=== PATIENT | male | born 1945 | race Caucasian/White ===

== ENCOUNTER 2018-08-04 05:46 | Inpatient (IN) | payer OTHER ==
[2018-08-04] MEDS ORDERED: LR 1,000 ML IV ONE (05:58)
[2018-08-04] MEDS ORDERED: cefOXitin SODIUM 2 GM in NS 100 ML IV ONE (07:00)
[2018-08-04] MEDS ORDERED: DEXAMETHASONE 4 MG/ML VIAL IVP ONE (07:00)
[2018-08-04] MEDS ORDERED: MIDAZOLAM 2 MG/2 ML VIAL IVP ONE (07:10)
[2018-08-04] MEDS ORDERED: POLYMYXIN B SULFATE 500,000 UNIT/10 ML SYR IRR ONE ×2 (07:10→07:59)
[2018-08-04] MEDS ORDERED: BUPIVACAINE 0.25% 30 ML SDV ONE ×2 (07:10→08:28)
[2018-08-04] MEDS ORDERED: MIDAZOLAM 2 MG/2 ML VIAL ONE (07:10)
[2018-08-04] MEDS ORDERED: BACITRACIN 50,000 UNITS/10 ML SYR IRR ONE (07:11)
--- NOTE | 2018-08-04 07:13 | PDANEPAE ---
ANE Past Medical History - Cardiovascular History Hx Hypertension: No Hx Arrhythmias: No Hx Chest Pain: No Hx Coronary Artery / Peripheral Vascular Disease: No Hx CHF / Valvular Disease: No Hx Palpitations: No Cardiovascular History Comment: SINUS BRADYCARDIA HAD PACEMAKER PLACED 02/2018 [place] - Pulmonary History Hx COPD: No Hx Asthma/Reactive Airway Disease: No Hx Recent Upper Respiratory Infection: No Hx Oxygen in Use at Home: No Hx Sleep Apnea: No Sleep Apnea Screening Result - Last Documented: Positive - Neurologic History Hx Cerebrovascular Accident: Yes Hx Seizures: No Hx Dementia: No Neurologic History Comment: LT SIDED - Endocrine History Hx Diabetes: Yes Endocrine History Comment: NIDDM - Renal History Hx Renal Disorders: No - Liver History Hx Hepatic Disorders: No - Neurological & Psychiatric Hx Hx Neurological and Psychiatric Disorders: No - Cancer History Hx Cancer: Yes Cancer History Comment: NEW DC COLON CA - Congenital Disorder History Hx Congenital Disorders: No - GI History Hx Gastrointestinal Disorders: Yes Gastrointestinal History Comment: COLONOSCOPY. HX OF POLYPS. CONSTIPATED - Other Health History Other Health History: HX PREV LT DVT HAD SCREEN PLACED IN [facility] SINCE REMOVED. MISSING TEETH - Chronic Pain History Chronic Pain: No - Surgical History Prior Surgeries: NEVER ANE Review of Systems Review of Systems: - Exercise capacity METS (RN): 3 METS - Pacemaker Pacemaker [employer] Insurance Agent: [employer] Date Pacemaker Last Checked: 06/2018 ANE Patient History - Allergies Allergies/Adverse Reactions: No Known Allergies Allergy (Unverified 07/24/18 14:46) - Home Medications Home medications: home medication list seen and reviewed Home Medications: Aspirin [Aspirin 81mg (*)] 81 mg PO DAILY 07/24/18 [Last Taken 08/01/18] FLUoxetine [Prozac 20 MG (*)] 20 mg PO DAILY 07/24/18 [Last Taken 08/04/18] Multivitamins [Multivitamin (*)] 1 each PO DAILY 07/24/18 [Last Taken 08/03/18] Pravastatin Sodium 20 mg PO HS 07/24/18 [Last Taken 08/03/18] Ranitidine HCl [Zantac] 300 mg PO DAILY 07/24/18 [Last Taken 08/02/18] Triamterene/Hctz 75/50 [Maxzide 75-50 mg Tab (*)] 1 tab PO DAILY 07/24/18 [Last Taken 08/04/18] metFORMIN HCL [Glucophage 500 mg (*)] 1,000 mg PO BIDMEAL 07/24/18 [Last Taken 08/02/18] - NPO status NPO Status: no food or drink >8 hours NPO Since - Liquids (Date): 08/04/18 NPO Since - Liquids (Time): 04:00 NPO Since - Solids (Date): 08/02/18 NPO Since - Solids (Time): 18:00 - Anes Hx Anes Hx: no prior problems - Smoking Hx Smoking Status: Never smoked Marijuana use: No - Alcohol Use Alcohol Use: None - Family Anes Hx Family Hx Anesthesia Complications: NEG ANE Labs/Vital Signs - Vital Signs Blood Pressure: 143/83 Heart Rate: 85 Respiratory Rate: 16 O2 Sat (%): 96 Height: 175.26 cm Weight: 113.852 kg ANE Physical Exam - Airway Neck exam: FROM Mallampati Score: Class 3 Mouth exam: poor dentition - Pulmonary Pulmonary: no respiratory distress, no rales or rhonchi, clear to auscultation, reduced air movement - Cardiovascular Cardiovascular: regular rate and rhythym, no murmur, rub, or gallop - ASA Status ASA Status: III ANE Anesthesia Plan Anesthesia Plan: general endotracheal anesthesia
--- NOTE | 2018-08-04 07:16 | PDHPUP ---
History & Physical Update H&P update statement: This history and physical update is based on an assessment of the patient which was completed after admission or registration (within 24 hours), but prior to the surgery/procedure. H&P update: H&P reviewed & patient examined, changes noted (blood glucose 143 this morning/pt reports no problems with bowel prep)
[2018-08-04] MEDS ORDERED: PROPOFOL 200 MG/20 ML VIAL ONE (07:22)
[2018-08-04] MEDS ORDERED: ONDANSETRON 4 MG/2 ML VIAL ONE (07:23)
[2018-08-04] MEDS ORDERED: ROCURONIUM 100 MG/10 ML VIAL ONE (07:23)
[2018-08-04] MEDS ORDERED: LIDOCAINE 2% 2 ML INJ ONE (07:23)
[2018-08-04] MEDS ORDERED: PHENYLEPHRINE HCL 100 MCG/ML SYR ONE (07:37)
[2018-08-04] MEDS ORDERED: DEXMEDETOMIDINE HCL 400 MCG in NS 100 ML IV SCH (08:00)
[2018-08-04] MEDS ORDERED: DEXMEDETOMIDINE HCL 200 MCG in NS 50 ML IV ONE (08:00)
[2018-08-04] MEDS ORDERED: ROCURONIUM 50 MG/5 ML VIAL ONE (09:24)
[2018-08-04] MEDS ORDERED: LABETALOL HCL 5 MG/ML 20 ML MDV IVP PRN (10:02)
[2018-08-04] MEDS ORDERED: fentaNYL 100 MCG/2 ML INJ IVP PRN (10:02)
[2018-08-04] MEDS ORDERED: ENALAPRILAT DIHYDRATE 1.25 MG/ML VIAL IVP PRN (10:02)
[2018-08-04] MEDS ORDERED: DEXAMETHASONE 4 MG/ML VIAL IVP PRN (10:02)
[2018-08-04] MEDS ORDERED: ONDANSETRON 4 MG/2 ML VIAL IVP PRN ×2 (10:02→11:06)
[2018-08-04] MEDS ORDERED: PROMETHAZINE HCL 25 MG/ML INJ IVP PRN (10:02)
[2018-08-04] MEDS ORDERED: NALOXONE HCL 0.4 MG/ML INJ IVP PRN (10:02)
[2018-08-04] MEDS ORDERED: LR 500 ML IV PRN (10:02)
[2018-08-04] MEDS ORDERED: GLYCOPYRROLATE 0.2 MG/1 ML VIAL ONE ×2 (10:16)
[2018-08-04] MEDS ORDERED: NEOSTIGMINE METHYLSULFATE 5 MG/5 ML SYR ONE (10:16)
--- NOTE | 2018-08-04 11:08 | POSTANESTH ---
Post Anesthetic Evaluation Cardiovascular Status: Normal, Stable, Similar to Pre-Op Cond Respiratory Status: Normal, Stable, Similar to Pre-op Cond. Level of Consciousness/Mental Status: Can Participate in Eval, Mildly Sleepy, Arousable Pain Control: Adequate, Prn Tx Ordered Nausea/Vomiting Control: Adequate, Prn Tx Ordered Complications Possibly Related to Anesthesia: None Noted
[2018-08-04] MEDS ORDERED: D50W 25 GM/50 ML SYR IVP PRN (11:13)
--- NOTE | 2018-08-04 11:16 | POSTOPPROG ---
Post Op Note Date of Operation: 08/04/18 Surgeon: Chico Saenz (, FACS) Tank Shop Supervisor: Cordelia Martin RN-FA Anesthesiologist: Douglas Meehan MD Anesthesia: GET(General Endotracheal) Pre-op Diagnosis: adenocarcinoma ascending colon Procedure: lap right colectomy Inf/Abcess present in the surg proc area at time of surgery?: No
[2018-08-04] MEDS: LR 1,000 ML IV SCH (11:48)
--- NOTE | 2018-08-04 12:39 | PDMN ---
Medical Necessity Medical necessity: [facility] IP only surgery; cpt 19829 Colectomy
[2018-08-04] MEDS: cefOXitin SODIUM 2 GM in NS 100 ML IV SCH ×3 (13:42→23:58)
[2018-08-04] MEDS: HEPARIN 5,000 UNIT/0.5 ML INJ SC SCH ×2 (13:43→21:39)
[2018-08-04] MEDS: ASPIRIN 81 MG CHEWABLE TAB PO SCH (13:43)
[2018-08-04] MEDS: METOCLOPRAMIDE 10 MG/2 ML VIAL IVP SCH ×3 (13:43→23:57)
--- NOTE | 2018-08-04 14:25 | GOP ---
DATE OF OPERATION: 08/04/2018 SURGEON: Chico Saenz MD, FACS [employer]: ZEHRA Goff. ANESTHESIA: General endotracheal. ANESTHESIOLOGIST: Chico Meehan MD. PREOPERATIVE DIAGNOSIS: 1. Adenocarcinoma of the ascending colon status post polypectomy. 2. Morbid obesity. POSTOPERATIVE DIAGNOSIS: PROCEDURE PERFORMED: Laparoscopic assisted right colectomy. FINDINGS: Extensive terminal ileal polyps without suspicious areas noted. Gross inspection of the colon revealing additional hyperplastic polyps without identification of the prior polypectomy site. ESTIMATED BLOOD LOSS: 50 mL. DESCRIPTION OF PROCEDURE: After informed consent was obtained, the patient was brought to the operating room and placed under general anesthesia. He had undergone mechanical and antibiotic bowel preparation preoperatively and received 2 g of cefoxitin perioperatively. SCD stockings were placed. A English catheter was placed. The abdomen was prepped and draped in the usual fashion. Before proceeding, a time-out and identification of the patient was performed. 0.25% Marcaine was used to infiltrate all incision sites. An infraumbilical incision was made and carried through skin and subcutaneous tissues. Blunt dissection was carried out down to the abdominal wall. Penetrating towel clamp was used to place ventral traction on the umbilicus, and a Veress needle was introduced into the peritoneal cavity. Position was confirmed by saline infusion and a pneumoperitoneum established with CO2 gas to a pressure of 15 mmHg. The Veress needle was withdrawn and replaced with a 12 mm bladeless trocar. A 30 degree 5 mm scope was introduced, and the peritoneal cavity was visualized. Additional 5 mm ports were placed in the upper midline subxiphoid and part way between the xiphoid and the umbilicus and a third port was placed in the right lower quadrant. This allowed introduction of atraumatic grasping forceps, and moving the camera from port to port gave better visualization. The dissection was technically demanding because of the patient's visceral obesity. There were adhesions to the omentum in the liver edge. These were taken down carefully to avoid trauma to the liver capsule. The peritoneal attachments of the ascending colon were taken down starting at the hepatic flexure and extending down to the cecum. The appendix was partially retrocecal , and this was freed up along with the cecum and the terminal ileum. After the bowel had been mobilized from its attachments, gentle blunt dissection was used to complete the dissection overlying Gerota's fascia and the colon was swept medially. After the bowel was fully mobilized, an access incision was made in the right mid abdomen approximately 10 cm in length. Dissection was carried out through the skin, subcutaneous tissues, abdominal wall lateral to the rectus sheath, and the oblique muscles were incised transversely. Peritoneum was incised. Peritoneal cavity was entered and an Rodrick wound protector deployed (medium). This allowed mobilization of the colon and terminal ileum into the incision. The terminal ileum was divided with a single firing of the GOSIA stapler. During the course of dissection, an inadvertent colotomy was performed with the Harmonic Scalpel close to the level of planned transection. The Nas clamp was applied to prevent contamination, and the bowel was divided at this level. The intervening mesentery was dispatched with the Harmonic Scalpel primarily. Hemostasis appeared secure. The bowel continuity was then re-established with a hand-sewn two-layered end-to-side anastomosis as follows. The end of the colon was approximated to the side of the terminal ileum with interrupted 3-0 Vicryl sutures for the posterior serosal layer of the anastomosis. The posterior inner row of the anastomosis was performed with continuous running 3-0 Vicryl suture continued anteriorly in a mucosal inverting fashion. The final anterior outer row of the anastomosis was performed with interrupted 3-0 Vicryl sutures. Upon completion, the anastomosis was intact without undue tension. It was returned to the abdominal cavity. The Rodrick wound protector was removed. Gowns, gloves, and instruments were changed for clean closure. The fascia was approximated with continuous running #1 PDS suture. Subcutaneous tissues were irrigated with normal saline. Skin was approximated with efrain. The umbilical fascial defect was repaired with interrupted 0 Vicryl suture. The port sites were closed with 4-0 Monocryl suture in a subcuticular fashion for the skin followed by Dermabond. Because of an incorrect instrument count, images were obtained in the operating room and showed no retained instruments. The patient was extubated and brought to the recovery room in satisfactory condition. Needle, sponge, and instrument counts were correct. COMPLICATIONS: None. Copy requested to: Ryan Ortiz MD [facility] /[id number]/MODL MTDD
[2018-08-04] MEDS: INSULIN REGULAR HUMAN 100 UNIT/ML UNIT SC SCH ×3 (15:29→21:40)
--- NOTE | 2018-08-04 16:37 | ASMTCMCOM ---
CM Note CM Note Notes: 08/04/2018 Case Management Note Reviewed chart. Pt admitted for laproscopic assisted right colectomy. There are no therapy evals ordered at this time. Pt is and retired. Case management d/c needs are unclear at this time. Case Management d/c poc: to be determined. Case Management to follow. Date Signed: 08/04/2018 04:33 PM Electronically Signed By:Tamar Velázquez RN
[2018-08-04] MEDS: TRIAMTERENE/HCTZ 75/50 1 EACH TAB PO SCH (17:19)
[2018-08-04] MEDS: FLUoxetine 20 MG CAP PO SCH (17:19)
[2018-08-04] MEDS: OXYCODONE/APAP 5/325 TAB PO PRN (17:20)
[2018-08-04] MEDS: PRAVASTATIN SODIUM 20 MG TAB PO SCH (21:40)
[2018-08-05] MEDS: HEPARIN 5,000 UNIT/0.5 ML INJ SC SCH ×3 (05:12→23:24)
[2018-08-05] MEDS: METOCLOPRAMIDE 10 MG/2 ML VIAL IVP SCH ×4 (05:12→23:24)
[2018-08-05] MEDS: ASPIRIN 81 MG CHEWABLE TAB PO SCH ×2 (07:53→09:52)
[2018-08-05] MEDS: TRIAMTERENE/HCTZ 75/50 1 EACH TAB PO SCH (07:53)
[2018-08-05] MEDS: FLUoxetine 20 MG CAP PO SCH (07:53)
[2018-08-05] MEDS: LR 1,000 ML IV SCH ×2 (07:58)
[2018-08-05] MEDS: INSULIN REGULAR HUMAN 100 UNIT/ML UNIT SC SCH ×4 (08:03→23:24)
--- NOTE | 2018-08-05 09:21 | SOAPPROG ---
SOAP Progress Note Assessment/Plan: Assessment:s/p lap right colectomy doing well POD #1 resolving post op ileus Plan: increase activity, continue clear liquids Fernandez Saenz MD, FACS 08/05/18 09:18 Subjective: resting comfortably, sitting up in chair Objective: Vital Signs Temp Pulse Resp BP Pulse Ox 36.4 C 114 H 16 154/90 H 96 08/05/18 07:47 08/05/18 07:47 08/05/18 07:47 08/05/18 07:47 08/05/18 07:47 Laboratory Results 08/05/18 04:22 08/05/18 04:22 08/04/18 08/05/18 08/06/18 05:59 05:59 05:59 Intake Total 2800 Output Total 950 250 Balance 1850 -250 - Pending Discharge Pending Discharge Within 24 Hours: No Pending Discharge Within 48 Hours: No Physical Exam - Physical Exam General Appearance: no apparent distress Respiratory: lungs clear, decreased breath sounds Cardiac/Chest: regular rate, rhythm Abdomen: normal bowel sounds, soft, other (bruising around umbilical port site) Male Genitalia: deferred Rectal: deferred Neuro/Psych: normal mood/affect, oriented x 3 ICD10 Worksheet Patient Problems: Problems Problem Status Onset Depression Acute Hypertension Acute Obesity (BMI 30-39.9) Acute Pacemaker Acute Primary adenocarcinoma of ascending colon Acute Type II diabetes mellitus Acute - ICD10 Problem Qualifiers (1) Primary adenocarcinoma of ascending colon (2) Type II diabetes mellitus Qualifiers: Diabetes mellitus complication status: without complication (3) Hypertension Qualifiers: Hypertension type: essential hypertension Qualified Code(s): I10 - Essential (primary) hypertension (4) Obesity (BMI 30-39.9) (5) Depression Qualifiers: Depression Type: major depressive disorder Active/Remission status: remission status unspecified (6) Pacemaker
[2018-08-05] MEDS: OXYCODONE/APAP 5/325 TAB PO PRN ×3 (09:41→18:08)
[2018-08-05] MEDS: PRAVASTATIN SODIUM 20 MG TAB PO SCH (23:24)
[2018-08-06] MEDS: METOCLOPRAMIDE 10 MG/2 ML VIAL IVP SCH ×4 (05:30→23:11)
[2018-08-06] MEDS: HEPARIN 5,000 UNIT/0.5 ML INJ SC SCH ×3 (05:30→22:13)
[2018-08-06] MEDS ORDERED: MAGNESIUM SULF 2 GM/WATER 50 ML IV ONE (07:06)
--- NOTE | 2018-08-06 07:17 | SOAPPROG ---
SOAP Progress Note Assessment/Plan: Assessment:s/p lap right colectomy doing well POD #2 resolving post op ileus tachycardia/hypertension NIDDM hypomagnesemia Hx DVT/PE Plan: increase activity/advance diet/restart Metformin/replace Mg++/continue Heparin hospitalist consult Fernandez Saenz MD, FACS 08/05/18 09:18 08/06/18 07:14 08/06/18 07:16 Subjective: sitting up in chair, denies much pain 2 loose stools/no flatus Objective: Vital Signs Temp Pulse Resp BP Pulse Ox 36.6 C 108 H 18 171/87 H 100 08/06/18 04:00 08/06/18 04:00 08/06/18 04:00 08/06/18 04:00 08/06/18 04:00 Laboratory Results 08/06/18 05:05 08/06/18 05:05 08/05/18 08/06/18 08/07/18 05:59 05:59 05:59 Intake Total 2800 100 Output Total 950 1050 Balance 1850 -950 - Time Spent With Patient Time Spent With Patient: 15 - Pending Discharge Pending Discharge Within 48 Hours: Yes Pending Discharge Date: 08/08/18 Pending Discharge Time: 11:00 Physical Exam - Physical Exam General Appearance: alert, no apparent distress Respiratory: lungs clear, decreased breath sounds Cardiac/Chest: regular rate, rhythm, tachycardia Abdomen: normal bowel sounds, soft, distended, other (incisions healing without signs of infection) Neuro/Psych: normal mood/affect, oriented x 3 ICD10 Worksheet Patient Problems: Problems Problem Status Onset Depression Acute Hypertension Acute Obesity (BMI 30-39.9) Acute Pacemaker Acute Primary adenocarcinoma of ascending colon Acute Type II diabetes mellitus Acute - ICD10 Problem Qualifiers (1) Primary adenocarcinoma of ascending colon (2) Type II diabetes mellitus Qualifiers: Diabetes mellitus complication status: without complication (3) Hypertension Qualifiers: Hypertension type: essential hypertension Qualified Code(s): I10 - Essential (primary) hypertension (4) Obesity (BMI 30-39.9) (5) Depression Qualifiers: Depression Type: major depressive disorder Active/Remission status: remission status unspecified (6) Pacemaker
[2018-08-06] MEDS: TRIAMTERENE/HCTZ 75/50 1 EACH TAB PO SCH (08:06)
[2018-08-06] MEDS: metFORMIN HCL 500 MG TAB PO SCH ×2 (08:06→17:46)
[2018-08-06] MEDS: FLUoxetine 20 MG CAP PO SCH (08:06)
[2018-08-06] MEDS: ASPIRIN 81 MG CHEWABLE TAB PO SCH (08:06)
[2018-08-06] MEDS ORDERED: hydrALAZINE 25 MG TAB PO PRN (08:38)
[2018-08-06] MEDS: INSULIN REGULAR HUMAN 100 UNIT/ML UNIT SC SCH ×4 (09:07→22:13)
[2018-08-06] MEDS: NS 1,000 ML IV SCH ×2 (09:09→17:45)
--- NOTE | 2018-08-06 09:12 | GCON ---
MEDICINE CONSULTATION DATE OF CONSULTATION: 08/06/2018 REASON FOR CONSULTATION: Dr. Saenz consulted medical service for postoperative tachycardia. HISTORY OF PRESENT ILLNESS: For details, please see history and physical dated August 04, 2018. In brief, Mr. Benavides is a 72-year-old male with a history of colon cancer who was admitted to the hospital for hemicolectomy. His past medical history is remarkable for history of pulmonary embolism 1 year ago, for which he took anticoagulation for approximately 8 months. He also recently had a pacemaker placed, the indication for this is unclear. In addition, he has a history of diabetes, hypertension, hyperlipidemia. He does not take insulin, but his blood sugars have been well controlled on oral hypoglycemics. Upon my evaluation, the patient denies any chest pain, shortness of breath, or pleuritic symptoms. He denies lower extremity edema. He overall feels well, except for some mild expected abdominal pain in the postop setting. He also denies any heart palpitations, dizziness, or weakness. He has been on 2 L of oxygen postoperatively, though this was turned off this morning, and he is saturating 90-92 percent on room air. PAST MEDICAL HISTORY: 1. History of pulmonary embolism. 2. Colon cancer, status post hemicolectomy. 3. Diabetes. 4. Hypertension. 5. Hyperlipidemia. PAST SURGICAL HISTORY: 1. Hemicolectomy, August 04, 2018. 2. Pacemaker, February 2018. SOCIAL HISTORY: The patient is . Denies tobacco use. FAMILY HISTORY: Reviewed, noncontributory. REVIEW OF SYSTEMS: A 10-point review of systems performed and negative except as per HPI. OBJECTIVE: VITAL SIGNS: Temperature is 36.6, blood pressure 171/87, heart rate 108, respiratory rate 18, he is 92% on room air. GENERAL: The patient is awake, alert, and oriented, in no acute distress. HEENT: Head is atraumatic, normocephalic. Pupils equal, round, react to light. Extraocular movements intact. Oropharynx clear. Mucous membranes are moist. NECK: Supple. There is no JVD. HEART: Slightly tachycardic, with a regular rhythm. LUNGS: He has faint bibasilar crackles, which improve with several deep breaths, suspect atelectatic. ABDOMEN: Soft, obese, nondistended, mild appropriate tenderness to palpation. Normoactive bowel sounds are present. EXTREMITIES: He has trace bilateral lower extremity edema. NEUROLOGIC: Grossly nonfocal. LABORATORY DATA: CBC reveals a white blood cell count of 11.7. Hemoglobin 12.3 , down from 15.4 preoperatively. Platelets are 173. Basic metabolic panel shows normal electrolytes, creatinine of 1.0. His blood sugars have been well controlled, in the 100s. Magnesium is low at 1.4, calcium 8.9. ASSESSMENT/PLAN: Mr. Benavides is a 72-year-old male with history of diabetes, hypertension, hyperlipidemia, and history of prior pulmonary embolism, who is admitted to the hospital for hemicolectomy for colon cancer. He is postop day 2. # Tachycardia. Suspect sinus, check an EKG to confirm the rhythm. My initial concern is pulmonary embolism, given his post-op status and history of PE 1 year ago; however, he has no chest pain, shortness of breath, tachypnea, or pleuritic symptoms. He has been receiving heparin at prophylactic doses. He has been weaned off oxygen and his saturations are ~90% on room air. I will start some normal saline to see if he is fluid responsive, though will defer bolus given his hypertension this morning. Defer D-dimer given his postop status. If his tachycardia persists or worsens, I have a low threshold to check CT pulmonary angiogram. I see no evidence of infection as a source of tachycardia and pain doesn't seem to be driving factor. Will trend his white blood cell count, and continue close monitoring on telemetry. Pacemaker was interrogated on Tuesday. # LBBB. Unclear if this is new. Check echo. # Hypertension. His blood pressure is elevated this morning, though he has not received his Maxzide yet. Will add p.r.n. hydralazine for systolic blood pressure greater than 60 after his home medications. # Colon cancer status post hemicolectomy, postop day 2. His postop course was complicated by a postop ileus, which is resolving. His diet has been advanced. Continue postop care per surgery. # Type 2 diabetes mellitus. His blood sugars are well controlled on his oral hypoglycemics, as well as sliding scale insulin. # Hyperlipidemia. Continue statin. # Hypomagnesemia. Replace per protocol. # DVT prophylaxis. Patient is receiving heparin. CODE STATUS: Patient is full code. DISPOSITION: Continue inpatient. Thank you very much for this consultation. Medicine will continue to follow closely during his hospitalization. Please contact us with any further questions or concerns. /[id number]/MODL MTDD
[2018-08-06] MEDS ORDERED: IOPAMIDOL (ISOVUE 370) 100 ML BTL IV ONE (14:02)
--- NOTE | 2018-08-06 16:30 | ASMTCMCOM ---
CM Note CM Note Notes: Spoke w/RN, anticipate pt will dc home w/support of when medically stable. CM available for any changes. DC Plan: Independent Date Signed: 08/06/2018 04:29 PM Electronically Signed By:Indiana Estrella RN
[2018-08-06] MEDS: PRAVASTATIN SODIUM 20 MG TAB PO SCH (22:13)
[2018-08-07] MEDS: NS 1,000 ML IV SCH (03:42)
[2018-08-07] MEDS: METOCLOPRAMIDE 10 MG/2 ML VIAL IVP SCH ×2 (05:01→12:04)
[2018-08-07] MEDS: HEPARIN 5,000 UNIT/0.5 ML INJ SC SCH (05:01)
[2018-08-07] MEDS: INSULIN REGULAR HUMAN 100 UNIT/ML UNIT SC SCH ×2 (08:37→12:04)
[2018-08-07] MEDS: ASPIRIN 81 MG CHEWABLE TAB PO SCH (08:59)
[2018-08-07] MEDS: FLUoxetine 20 MG CAP PO SCH (08:59)
[2018-08-07] MEDS: metFORMIN HCL 500 MG TAB PO SCH (08:59)
[2018-08-07] MEDS: TRIAMTERENE/HCTZ 75/50 1 EACH TAB PO SCH (08:59)
--- NOTE | 2018-08-07 11:37 | HOSPPROG ---
Hospitalist Progress Note Assessment/Plan: Tachycardia - HR 95 this AM, 100's overnight - Patient asymptomatic - EKG: Sinus ,paced - PPM interrogated on Tuesday - CTA performed to r/o PE - S/p IVF - Continue to monitor for now HTN - BP WNL this AM - Continue home home Maxzide - PRN Hydralazine also ordered Colon Cancer s/p Hemicolectomy - Continue postop care per surgery T2DM - BG well controlled - Continue SSI, Metformin HLD - Continue home statin Medicine will continue to follow patient during his hospitalization. Please contact us with any further questions or concerns. Subjective: Patient with no complaints this morning Objective: Vital Signs Temp Pulse Resp BP Pulse Ox 36.6 C 95 16 131/77 H 96 08/07/18 08:30 08/07/18 08:30 08/07/18 08:30 08/07/18 08:30 08/07/18 08:30 Laboratory Results 08/07/18 04:10 08/06/18 05:05 08/06/18 08/07/18 08/08/18 05:59 05:59 05:59 Intake Total 100 2686 Output Total 1050 50 Balance -950 2636 - Physical Exam Constitutional: no apparent distress Eyes: PERRL Ears, Nose, Mouth, Throat: moist mucous membranes Cardiovascular: regular rate and rhythym Respiratory: clear to auscultation Gastrointestinal: tenderness Genitourinary: no bladder tenderness Skin: warm Musculoskeletal: no joint effusions Neurologic: AAOx3 Psychiatric: interacting appropriately ICD10 Worksheet Patient Problems: Problems Problem Status Onset Depression Acute Hypertension Acute Obesity (BMI 30-39.9) Acute Pacemaker Acute Primary adenocarcinoma of ascending colon Acute Type II diabetes mellitus Acute
[2018-08-07 12:19] VITALS: BP 136/79
[2018-08-07] MEDS ORDERED: APIXABAN 5 MG TAB PO SCH (13:45)
--- NOTE | 2018-08-07 13:58 | PDDCSUM ---
Discharge Summary Discharge Summary: #[id number] S MD Dany, FACS
--- NOTE | 2018-08-07 14:25 | GDS ---
DISCHARGE DIAGNOSES: 1. Adenocarcinoma of the ascending colon, status post polypectomy (T1a Nx). 2. Morbid obesity. 3. Type 2 diabetes mellitus. 4. Hypertension. 5. History of coronary artery disease. 6. Status post pacemaker placement for symptomatic bradycardia after colonoscopy February 2018. 7. Postoperative tachycardia. 8. Remote history of deep venous thrombosis and pulmonary embolism. PROCEDURE PERFORMED: 08/04/2018, laparoscopic assisted right colectomy. HOSPITAL COURSE: For details of admission history and physical, please see dictated summary. Manfred banerjee was brought to the operating room on the day of admission after mechanical and antibiotic bowel pre paration at home. He received 2 g of cefoxitin preoperatively and had SCD stockings in place intraop eratively. A English catheter was placed after he was placed under general anesthesia, and he underwen t surgery with minimal blood loss. Postoperatively, he received 3 doses of cefoxitin in the first 24 hours and then antibiotics were discontinued. He had a mild ileus after surgery. This began to res olve on the first postoperative day and he was advanced to a liquid diet, which he tolerated well. Initially, he had normal vital signs and then became hypertensive and tachycardic on the evening of t he second postoperative day and Internal Medicine consultation was requested. Because of his remote history of DVT and pulmonary embolism, a CT angiogram was recommended to rule out recurrent PE and th is study showed atelectasis, but no evidence of pulmonary embolism. He received intravenous fluids a nd responded with a slight drop in his hematocrit and reduction in his heart rate. The patient was treated postoperatively with heparin 5000 units subcu q.8 hours starting within for 6 hours after surgery and this was continued until discharge. He was switched to Eliquis 2.5 mg p.o. b.i.d. for prolonged prophylaxis and this will be continued for a total of 3 months. Final pathology is pending at time of dictation. DISCHARGE MEDICATIONS: Include Eliquis 2.5 mg p.o. b.i.d. #60, oxycodone 5/325 mg 1 p.o. q.4 hours p .r.n. #14, patient will resume multivitamins one p.o. daily, Prozac 20 mg p.o. daily, aspirin 81 mg p .o. daily, metformin 1000 mg p.o. b.i.d., Maxzide 75/50 one p.o. daily, pravastatin 20 mg p.o. q.h.s. , and ranitidine 300 mg p.o. daily. DISCHARGE INSTRUCTIONS/FOLLOWUP: The patient was instructed in activity and wound care and will foll ow up in my office in approximately 1 week for staple removal. His incisions were healing well witho ut sign of infection at time of discharge. Copy requested to: Dr. Ryan Wilson [facility] /[id number]/MODL
--- NOTE | 2018-08-07 16:12 | CPEKG ---
Test Reason : OPEN Blood Pressure : / mmHG Vent. Rate : 120 BPM Atrial Rate : 120 BPM P-R Int : 138 ms QRS Dur : 141 ms QT Int : 399 ms P-R-T Axes : 015 068 -82 degrees QTc Int : 564 ms Sinus tachycardia IVCD, consider atypical LBBB Confirmed by Jameel Esqueda ([id number]) on 08/07/2018 4:12:25 PM Referred By: Confirmed By:Jameel Esqueda
== END 2018-08-07 14:36 | disposition home or self-care (01) | DRG 331 ==
LOC: F3E 05:46
PROVIDERS: ADMIT Surgery; ATTEND Surgery
PROC: 0DTF4ZZ Resection of Right Large Intestine, Percutaneous Endoscopic Approach (ICD-10-PCS; principal; 2018-08-04 07:15)
DX: C18.2 Malignant neoplasm of ascending colon (principal); E66.01 Morbid (severe) obesity due to excess calories; E11.9 Type 2 diabetes mellitus without complications; I10 Essential (primary) hypertension; I25.10 Atherosclerotic heart disease of native coronary artery without angina pectoris; E83.42 Hypomagnesemia; R00.0 Tachycardia, unspecified; I44.7 Left bundle-branch block, unspecified; E78.5 Hyperlipidemia, unspecified; Z95.0 Presence of cardiac pacemaker; Z86.711 Personal history of pulmonary embolism; Z86.718 Personal history of other venous thrombosis and embolism; Z79.84 Long term (current) use of oral hypoglycemic drugs
CPT/HCPCS: 82947-QW; J0694; J1100; J1644; J1815; J2250; J2270; J2370; J2405; J2704; J2710; J2765; J3475; Q9967